=== PATIENT | female | born 1955 | race Caucasian/White ===

== ENCOUNTER 2017-04-15 17:12 | Emergency (ER) | payer MEDICAID ==
[~2017-04-15] VITALS: Ht 160 cm; Wt 100.7 kg
[~2017-04-15 17:12] MED LIST: APAP/HYDROCODON1 T13 PO; COL100 PO; GLU500 PO; LEVAQUIN750 MG PO
[2017-04-15 19:04] VITALS: BP 145/97
== END 2017-04-15 19:04 | disposition home or self-care (01) ==
LOC: ED 17:12
DX: M54.31 Sciatica, right side (principal)
CPT/HCPCS: J1885

== ENCOUNTER 2017-04-16 10:49 | Inpatient (IN) | payer MEDICAID ==
[~2017-04-16] VITALS: Ht 165.1 cm; Wt 100.8 kg
[2017-04-16 13:15] VITALS: BP 150/93
[2017-04-16 13:20] LABS: PLATELET COUNT 263 x10^3mcL (130-400); RED CELL DISTRIBUTION WIDTH 13.6 % (11.5-14.5)
[2017-04-16 13:21] VITALS: Ht 165.1 cm; Wt 100.8 kg
[2017-04-16 13:28] LABS: BASOPHIL % 0 % (0-2)
[2017-04-16 13:36] LABS: ALBUMIN 3.6 g/dL (3.4-5.0); ALKALINE PHOSPHATASE 71 U/L (46-116); ALT/SGPT 33 U/L (14-59); AST/SGOT 20 U/L (15-37); BILIRUBIN TOTAL 1.24 mg/dL (0.20-1.00); CALCIUM 10.3 mg/dL (8.5-10.1); CARBON DIOXIDE 26.2 mmol/L (21-32); CHLORIDE SERUM 106 mmol/L (98-107); CREATININE SERUM 0.7 mg/dL (0.6-1.0); GFR1 > 60 mL/min; GLUCOSE SERUM 158 mg/dL (74-106); PHOSPHOROUS 1.9 mg/dL (2.5-4.9); POTASSIUM SERUM 4.6 mmol/L (3.5-5.1); SODIUM SERUM 142 mmol/L (136-145)
[2017-04-16 13:42] LABS: T3 TOTAL 1.01 ng/mL
[2017-04-16 13:47] LABS: FREE THYROXINE INDEX 2.4 ug/dL (1.4-4.5); T4(THYROXINE) 9.1 ug/dL (4.7-13.3)
[2017-04-16 14:05] LABS: FREE T4 1.29 ng/dL (0.76-1.46)
[2017-04-16 20:51] VITALS: BP 106/61
[2017-04-17 01:19] LABS: UA SPECIFIC GRAVITY 1.025 (1.005-1.035); microscopic required? YES; urine erythrocyte TRACE (NEGATIVE)
[2017-04-17 01:58] LABS: AMPHETAMINE QUAL UR NONE DETECTED (NEG <=1000)
[2017-04-17 05:24] VITALS: BP 129/69
[2017-04-17 06:59] LABS: CALCIUM 9.8 mg/dL (8.5-10.1); CARBON DIOXIDE 25.6 mmol/L (21-32); CHLORIDE SERUM 107 mmol/L (98-107); CHOLESTEROL 144 mg/dL (<200); CHOLESTEROL/HDL RATIO 2.9; CREATININE SERUM 0.7 mg/dL (0.6-1.0); GFR1 > 60 mL/min; GLUCOSE SERUM 218 mg/dL (74-106); HDL CHOLESTEROL 50 mg/dL (40-60); PHOSPHOROUS 2.6 mg/dL (2.5-4.9); POTASSIUM SERUM 4.6 mmol/L (3.5-5.1); SODIUM SERUM 141 mmol/L (136-145); TRIGLYCERIDES 81 mg/dL (<150)
[2017-04-17 07:24] LABS: BASOPHIL % 0.2 % (0-2); PLATELET COUNT 291 x10^3mcL (130-400); RED CELL DISTRIBUTION WIDTH 13.1 % (11.5-14.5)
[2017-04-17 10:00] VITALS: BP 99/61
[2017-04-17] MEDS ORDERED: BEN50 PO (11:03)
[2017-04-17] MEDS ORDERED: COL100 PO (11:04)
[2017-04-17] MEDS ORDERED: OXYCODONE HYDROC5 M2 PO (11:04)
[2017-04-17] MEDS ORDERED: GLU500 PO (11:04)
[2017-04-17] MEDS ORDERED: MEDDP PO (11:05)
[2017-04-17 11:16] VITALS: BP 99/61
== END 2017-04-17 12:24 | disposition home or self-care (01) | DRG 811 ==
LOC: ED 10:49 → DU 11:29
PROVIDERS: ADMIT Family Medicine
DX: T88.6XXA Anaphylactic reaction due to adverse effect of correct drug or medicament properly administered, initial encounter (principal); D68.69 Other thrombophilia; E11.65 Type 2 diabetes mellitus with hyperglycemia; I10 Essential (primary) hypertension; E80.6 Other disorders of bilirubin metabolism; E83.39 Other disorders of phosphorus metabolism; T39.315A Adverse effect of propionic acid derivatives, initial encounter; Y92.018 Other place in single-family (private) house as the place of occurrence of the external cause
CPT/HCPCS: 82962; 83880; 84439; J1200; J2930; J3490; J7030; J7040; Q0092; Q0163